=== PATIENT | male | born 1940 | race Caucasian/White ===

== ENCOUNTER 2018-08-23 14:10 | Emergency (ER) | payer MEDICARE, BC, SELFPAY ==
[2018-08-23] VITALS (8 sets, daily range): BP systolic 135–151; BP diastolic 75–87; PULSE 65–98; RESP 18–27; TEMP 36.1; O2SAT 68–100; BMI 16.8
--- NOTE | 2018-08-23 14:33 | ED.RN ---
AND PT [employer]IST[employer]. PT GRUMPY AND DEMANDING.
--- NOTE | 2018-08-23 14:50 | EKG12_ITS ---
Test Reason : DYSSRHYTHMIA Blood Pressure : / mmHG Vent. Rate : 066 BPM Atrial Rate : 088 BPM P-R Int : 000 ms QRS Dur : 100 ms QT Int : 340 ms P-R-T Axes : 000 030 035 degrees QTc Int : 356 ms Atrial fibrillation Voltage criteria for left ventricular hypertrophy Cannot rule out Inferior infarct , age undetermined Poor R-Wave Progression Abnormal ECG Confirmed by GLADYS TINSLEY, GARY ([id number]), fan mail editor ULICES GARDNER ([id number]) on 08/26/2018 1:47:09 PM Referred By: NICHOLAS Confirmed By:GARY GRAHAM MD
[2018-08-23 15:07] LABS: Absolute Lymphocyte Count 1.39 X10^3/ul (0.83-4.51); Absolute Neutrophil Count 7.2 X10^3/uL (2.0-7.7); Basophil# 0.04 X10^3/uL; Basophil% 0.4 % (0-1); Eosinophil# 0.24 X10^3/uL; Eosinophils% 2.5 % (0-5); Hematocrit 30.2 % (40-54); Hemoglobin 8.9 g/dl (13.0-16.5); Lymphocyte # 1.39 X10^3/ul (4.0); Lymphocyte % 14.4 % (19-41); Mean Corp Hgb Conc 29.5 g/gl (32-36); Mean Corpuscular Hgb 28.1 pg (27.0-32.0); Mean Corpuscular Volume 95.3 fL (80-94); Mean Platelet Vol. 9.8 fl (6.2-12.0); Monocyte# 0.76 X10^3/uL; Monocyte% 7.9 % (0-10); Neutrophil # 7.18 X10^3/uL (2.7-7.7); Neutrophil % 74.7 % (47-70); Platelet Count 181 K/mm3 (150-450); RBC Distribution Width CV 14.7 % (11.6-14.6); RBC Distribution Width SD 50.8 fl (35.1-43.9); Red Blood Count 3.17 M/mm3 (4.6-6.2); White Blood Count 9.6 K/mm3 (4.4-11.0)
[2018-08-23 15:08] LABS: POSITIVE COUNT NO; POSITIVE DIFFERENTIAL NO; POSITIVE MORPHOLOGY NO
--- NOTE | 2018-08-23 15:20 | RAD_ITS ---
STUDY: X-RAY CHEST REASON FOR EXAM: Male, 77 years old. Dyspnea. History of COPD and congestive heart failure. TECHNIQUE: 2 views COMPARISON: None. FINDINGS: Generalized hyperexpansion with flattening of the right diaphragm. Mild elevation and flattening of the left diaphragm and blunting of the left costophrenic angle. Diffuse interstitial changes that are more prominent at the right lung base without a broad area of consolidation. Normal size heart. Normal mediastinum and kyra. Normal visualized pulmonary arteries. There is atherosclerotic calcification of the aortic arch with tortuosity. There are diffuse degenerative changes of the visualized thoracic spine. Normal visualized ribs, clavicles, and shoulders. There is no demonstrated abnormality of the visualized soft tissue structures of the upper abdomen. RAD/Chest PA and Lateral IMPRESSION: Generalized hyperexpansion and interstitial changes compatible with severe COPD. Prominence of interstitial lung markings at the right lung base relative to the left which may indicate asymmetric chronic disease versus an early acute consolidation. Otherwise negative for a substantial pleural effusion. Electronically Signed: Carina Tejeda MD at 15:49 EDT , Service support ,
[2018-08-23 15:35] LABS: BUN 23 mg/dL (7-18); BUN/Creat Ratio 21.1 RATIO (10-20); Calcium,Total 9.3 mg/dL (8.5-10.1); Chloride 91 mmol/L (98-107); Creatinine, Serum 1.09 mg/dL (0.70-1.30); EST Glomerular Filtration Rate 69 mL/min (>60); Est Glom Filt Rate - Afr Amer 84 mL/min (>60); Estimated Creatinine Clearance 44.43 ml/min; Glucose 101 mg/dL (74-106); Sodium Level 135 mmol/L (136-145)
[2018-08-23 15:36] LABS: Anion Gap -1 (5-15)
--- NOTE | 2018-08-23 16:16 | ED.VISSUMM ---
- ER Visit Summary Date of Service: 08/23/18 Chief Complaint: Short of breath History of Present Illness: The patient is a 77 M with long-standing COPD on home oxygen for approximately last 10 years. reports he is having intermittent periods of visual hallucinations, for example last night he was choking a trash can as he thought it was an intruder. Patient states he will also intermittently see a man standing in the corner that his states is not there. He has had somewhat worsening shortness of breath. He has had very minimal cough. Patient is on inhaled tobramycin and states he thinks that is making him worse. He reportedly checks his pulse ox at home regularly. He states he normally runs in the 90s but will drop with any exertion. Patient lives in the [facility], but is staying with family here for the winter. They are scheduled to return home tomorrow. Physical Examination: Blood pressure is 151/83, temperature 97, heart rate 66, respiratory rate 26, pulse ox was 68% on 4 L nasal cannula in triage. Nurse notes she is unsure of his portable oxygen tank was working appropriately. Head and neck examination is grossly unremarkable. Heart is regular rate and rhythm. Lungs sounds are slightly diminished throughout. Abdomen is soft and nontender. Test Results: EKG is A. fib at 66. There is mild lateral ST depression in V5 and V6. Chest x-ray shows hyperexpansion and interstitial changes compatible with severe COPD. He has prominent interstitial lung markings at the right base. This could represent chronic asymmetric disease versus early acute infiltrate. CBC significant for normal white count. Hemoglobin is 8.9. Chemistry studies reveal bicarb of 45. His BUN is 23 with normal creatinine. Troponin is less than 0.015. Influenza is negative. Digoxin is 2.00. Urinalysis shows greater than 100 white cells with bacteria. Emergency Department Course and Treatment: Upon entering the exam room the patient was satting 100% on 6 L nasal cannula. He was turned back down to his normal 4 L nasal cannula. Test results were discussed with patient and at bedside. I believe his urinary infection is likely triggering his intermittent hallucinations. Patient is planning to return home tomorrow where his doctors are. I do not believe that we would do anything different in the hospital and give him antibiotics to treat his urine. He can do this as an outpatient. If he worsens he is to return here or to his local emergency room for evaluation. Treatment Plan: [] Disposition: Discharge Impression: 1. UTI 2. Chronic COPD This note was generated with [employer] dictation software. It may contain incorrect words, spelling, and punctuation that were not noted in review of the chart prior to signing ED Disposition - Plan for ED Patient: Referrals: [facility] Doctor,Out of [Primary Care Provider] -
[2018-08-23 16:26] LABS: Mucous, Urine 0 SEEN /hpf (<or=2+); Red Blood Cells-Urine 0 SEEN /hpf (0-5); Squamous Epithelial Cells - UA 0 SEEN /hpf (0-5)
[2018-08-23 16:46] LABS: Color, Urine Yellow (Yellow); Glucose, Dipstick Normal (Normal); Ketone-Dipstick Negative (Negative); Leukocyte Esterase-Dipstick 500 /ul (Negative); Nitrite-Dipstick Negative (Negative); Occult Blood-Urine 25 /ul (Negative); Protein-Dipstick 30 mg/dl (Negative); Urine Clarity Cloudy (Clear); Urine Urobilinogen Normal (Normal)
[2018-08-23 17:01] LABS: Urine Bilirubin Dipstick 3 mg/dL (Negative)
[2018-08-23 17:06] LABS: Bacteria RARE /hpf (None Seen); White Blood Cells >100 SEEN /hpf (0-5)
--- NOTE | 2018-08-23 18:02 | ED.DEP ---
ED Disposition - Plan for ED Patient: Disposition: Home or Assisted Living Instructions: ED UTI Cystitis Male Prescriptions: Ciprofloxacin [Cipro] 500 mg PO BID #6 tablet Referrals: [facility] Doctor,Out of [Primary Care Provider] - 5-7 Days
== END 2018-08-23 18:17 | disposition home or self-care (01) ==
PROVIDERS: Emergency Provider Emergency Medicine
DX: N39.0 Urinary tract infection, site not specified (principal); J44.9 Chronic obstructive pulmonary disease, unspecified; I48.91 Unspecified atrial fibrillation; Z99.81 Dependence on supplemental oxygen
CPT/HCPCS: 71046; 80048; 80162; 81001; 84484; 85025; 87804; 93005; 99284